=== PATIENT | female | born 1960 | race Caucasian/White ===

== ENCOUNTER 2023-08-29 07:07 | Outpatient (RCR) | payer OTHER, SELFPAY | END 2023-08-31 23:59 | disposition home or self-care (01) | LOC: RPT 07:07 | PROVIDERS: ATTENDING PHYSICIAN Physical Medicine & Rehabilitation | DX: Z47.81 Encounter for orthopedic aftercare following surgical amputation (principal); Z89.611 Acquired absence of right leg above knee; G62.9 Polyneuropathy, unspecified; R26.2 Difficulty in walking, not elsewhere classified; M25.522 Pain in left elbow; M62.81 Muscle weakness (generalized); Z74.09 Other reduced mobility | CPT/HCPCS: 97112; 97116; 97140; 97763 ==

== ENCOUNTER 2023-09-28 06:55 | Outpatient (RCR) | payer OTHER, SELFPAY | END 2023-09-28 23:59 | disposition home or self-care (01) | LOC: RPT 06:55 | PROVIDERS: ATTENDING PHYSICIAN Physical Medicine & Rehabilitation | DX: Z47.81 Encounter for orthopedic aftercare following surgical amputation (principal); Z89.611 Acquired absence of right leg above knee; M25.522 Pain in left elbow; G62.9 Polyneuropathy, unspecified; R26.2 Difficulty in walking, not elsewhere classified; Z74.09 Other reduced mobility; M62.81 Muscle weakness (generalized); Z73.6 Limitation of activities due to disability | CPT/HCPCS: 97116; 97140; 97763 ==

== ENCOUNTER → 2023-10-17 09:18 | Outpatient (REF) | payer OTHER, SELFPAY | LOC: RAD 09:18 | PROVIDERS: ATTENDING PHYSICIAN Surgery Vascular Surgery | DX: I73.9 Peripheral vascular disease, unspecified (principal) | CPT/HCPCS: 93922; 93925 ==

== ENCOUNTER 2023-10-19 06:15 | Outpatient (RCR) | payer OTHER, SELFPAY | END 2023-10-19 23:59 | disposition home or self-care (01) | LOC: RPT 06:15 | PROVIDERS: ATTENDING PHYSICIAN Physical Medicine & Rehabilitation | DX: Z47.81 Encounter for orthopedic aftercare following surgical amputation (principal); M25.522 Pain in left elbow; G62.9 Polyneuropathy, unspecified; R26.2 Difficulty in walking, not elsewhere classified; Z74.09 Other reduced mobility; M62.81 Muscle weakness (generalized); Z89.611 Acquired absence of right leg above knee | CPT/HCPCS: 97140; 97763 ==

== ENCOUNTER 2023-10-24 09:23 | Inpatient (IN) | payer OTHER, SELFPAY ==
[2023-10-12 10:25] VITALS: BMI 25.9
[2023-10-12 11:04] LABS: % Basophils 0.3 % (0-2); % Eosinophils 1.5 % (0-6); % Immature Granulocytes 0.7 % (0-0.5); % Lymphocytes 24.4 % (20.5-51.1); % Monocytes 7.9 % (1.7-9.3); % Neutrophils 65.2 % (42.2-75.2); Absolute Eosinophils 0.1 10^3/uL (0-0.7); Absolute Immature Granulocytes 0.1 10^3/uL (0-0.05); Absolute Lymphocytes 1.8 10^3/uL (1.2-3.4); Absolute Monocytes 0.6 10^3/uL (0.1-0.6); Absolute Neutrophils 4.7 10^3/uL (1.4-6.5); Hematocrit 42.9 % (37.0-47.0); Hemoglobin 14.7 g/dL (12.0-16.0); Mean Corp Hgb Conc. 34.3 g/dL (33.0-37.0); Mean Corpuscular Hgb 30.7 pg (27.0-31.0); Mean Corpuscular Volume 89.6 fL (81.0-99.0); Mean Platelet Volume 9.5 fL (7.4-10.4); Nucleated Red Blood Cells % 0 %; Platelet Count 143 10^3/uL (130-400); Red Blood Cell Count 4.79 10^6/uL (4.20-5.40); Red Cell Dist. Width 12.7 % (11.5-14.5); White Blood Cell Count 7.3 10^3/uL (4.8-10.8)
[2023-10-12 11:13] LABS: INR 1.06; PT 13.8 Sec (11.4-14.6)
[2023-10-12 11:51] LABS: ALT (SGPT) 35 U/L (0-35); AST (SGOT) 45 U/L (14-36); Albumin 3.9 g/dl (3.5-5.0); Alkaline Phosphatase 136 U/L (38-126); Blood Urea Nitrogen 25 mg/dl (7-17); Calcium 8.7 mg/dl (8.4-10.2); Carbon Dioxide 29 mmol/L (22-30); Chloride 97 mmol/L (98-107); Estimated Creatinine Clearance 71 ml/min; Glucose 463 mg/dl (70-99); Magnesium 2.2 mg/dl (1.6-2.3); Potassium 4.5 mmol/L (3.5-5.1); Sodium 132 mmol/L (135-145); Total Bilirubin 1.1 mg/dl (0.2-1.3); Total Protein 6.6 g/dl (6.3-8.2); eGFR > 60.00
[2023-10-24] VITALS (8 sets, daily range): BP systolic 116–133; BP diastolic 61–76; BMI 25.9
[2023-10-24 07:07] LABS: Glucose - Point of Care 209 mg/dl (70-99)
[2023-10-24] MEDS: NOVOLOG vial 2 UNITS SC (07:24)
--- NOTE | 2023-10-24 08:42 | W.ICD.CONTRA ---
Post ICD/FINISH CARPENTER-D
-
History of LA?: No
LV Function
Left ventricular function study result?: Ejection Fraction </= 35%
ACEI/ARB/ARNI
Patient already on ACEI/ARB/ARNI: Yes
Beta-José Antonio
Patient already on Beta José Antonio: Yes
--- NOTE | 2023-10-24 12:02 | PTCARENOTE ---
Received the patient from the track repair laborer in her bed. The patient is aaox3, vss, 96% on RA. 100% A-V paced on the monitor. Her left chest wall Aquacel dressing is c/d/i with a pressure dressing overtop. Her left arm immobilizer is in place. Her only
complaint is mild back pain. I oriented her to her room. Her call rod is within reach.
--- NOTE | 2023-10-24 12:16 | ITS.CL.ICD ---
Cane Feeder - ICD
Implantable Cardioverter Defibrillator
Procedure Report:
Primary Physician: Solange Tong MD
Primary Hospital Orderly: Reese Deng MD
Procedure Date: 10/24/2023
Procedure:
1: Implantation of GARNISHMENT SPECIALIST-D utilizing LBBAP pacing lead for conduction system pacing
2: Subclavian venography
Indication/Diagnosis:
1. LBBB with baseline QRS > 120 msec
2. CHF - NYHA class 3
3. LVEF < 35%
HISTORY: Please see office H&P.
Patient is a 63-year-old female with a past medical history of mixed cardiomyopathy LVEF less than 35% despite goal-directed medical therapy, CAD, PAD status post right AKA, diabetes mellitus type 2, hypertension, dyslipidemia.
After informed consent was obtained, the patient was brought to the EP laboratory in a postabsorptive, nonsedated state. Peripheral IV access was established. Prophylactic antibiotics were administered prior to incision. Continuous ECG, blood
pressure, and pulse oximetry were initiated. Cardioversion patch electrodes were placed on the patient's chest and back. A grounding patch was applied to the skin. Sedation was administered by anesthesia.
In order to define the extrathoracic portion of the subclavian vein and exclude significant venous obstruction or anomalous anatomy, subclavian venography was performed prior to the procedure. Using the patient's left peripheral IV, contrast was
injected and images were recorded. The left subclavian vein and SVC were found to be widely patent.
The left chest was prepared and draped in a sterile fashion. A 'time out' was called and confirmed. Local anesthesia was injected in the subcutaneous tissue in the infraclavicular area. An incision was made medial to the deltopectoral groove and
parallel to the clavicle. The subcutaneous tissue was dissected the level of the prepectoral fascia. A subcutaneous pocket was created. Under fluoroscopic guidance and with the assistance of the images from the venogram, three separate
venipunctures were made using micropuncture and modified Seldinger technique. These was performed in the extrathoracic portion of the subclavian vein. Guidewires were passed. Peel-away sheaths were placed, and were used to advance the leads into
the circulation.
Using fluoroscopic guidance, the leads were positioned. The RV lead was advanced to the RV outflow tract. Ventricular ectopy was recorded. Images were taken in VICENTE and LITHUANIAN views to ensure appropriate lead placement. The lead tip was subsequently
positioned in the RV apex. Adequate sensing and pacing parameters were found, and no diaphragmatic stimulation was seen with high-output pacing.
Fluoroscopy was used to determine likely anatomic site for left bundle branch pacing. The FABPulous C315 sheath was used to deliver the Medtronic 3830 Selectsecure pacing lead with the helix exposed just exposed from the sheath tip during continuous
monitoring when pacemapping the septum during gentle clockwise rotation to obtain a paced QRS morphology of a W pattern in lead V1. Once the suspected optimal site was identified, lead deployment was performed with several rapid rotations as paced
QRS morphology was intermittently monitored until a paced QRS complex in lead V1 demonstrated development of an R wave (qR or rSR). Unipolar pacing impedance dropped by approximately 100-200 ohms suggesting it had reached the left ventricular
subendocardial. Stable VEgm injury current is present throughout lead position and at end of case. Final unipolar pacing impedance is 880 Ohms Unipolar pacing threshold is stable at 1 V @ 0.4 ms. The patient had pre-existing left bundle branch block
at baseline (150 ms). Final conduction system paced QRS complex duration is 113 ms. LVAT is 70 ms and peak V5 -> peak V1 timing is 67 ms.
Next, the right atrial lead was positioned in the right atrial appendage. Adequate sensing and pacing parameters were found, and no diaphragmatic stimulation was seen with high-output pacing. All sheaths were split, and the leads were secured to
the fascia with Ethibond ties.
The pocket was flushed with antibiotic solution and hemostasis was assured. The generator was connected to the leads and placed inside the pocket. Antibiotic envelope was used. SurgiFlo was used in the pocket. The wound was closed with 3 running
layers of absorbable suture, and steri-strips were applied. Defibrillator function testing was deferred.
Fluoroscopy was used to guide lead placement. Fluoroscopic exposure 28.1 min and 84.17 mGy and DAP 8.56. Contrast used 30 cc.
Following the procedure, the patient was taken to the recovery area in stable condition. A chest x-ray to be obtained in holding/patient room.
IMPLANTS:
Device: Medtronic Model QRTQ9X0, SN: [id number]
RA: Medtronic, Model 5076, SN: [id number]
RV ICD: Medtronic, Model 6935, SN: [id number]
RV LBBAP: Medtronic 3830, SN:[id number], Interventricular septum at LBB
DEVICE TESTING:
RA: Sensing 2.2 mV, Capture 0.875 V @0.4 msec, Impedance 780 ohms
RV (ICD lead): Sensing 20 mV, Capture 0.75 V @0.4 msec, Impedance 570 ohms
RV (LBBAP lead): Sensing 12 mV, Capture 1.0 V @0.4 msec, Impedance 580 ohms (bipolar)
FINAL PROGRAMMING
Jimmy Parameters: DDD, mode switch on, lower rate 50, upper tracking rate 130 bpm; LV pacing only
Tachy Parameters: Monitor zone: 150 bpm to 188 bpm; VF zone >188 bpm; with ATP and shocks
COMPLICATIONS:
There were no complications.
CONCLUSIONS:
1: Successful implantation of GARNISHMENT SPECIALIST-D utilizing LBBAP pacing lead for conduction system pacing
RECOMMENDATIONS:
1. Post-op care (tele, CXR, IV abx)
2. In-Office wound check in 5-7 days
3. Recommend reduction in output to improve QRS morphology at next office visit
Copy to: Solange Tong MD; Reese Deng MD
[2023-10-24] MEDS: TYLENOL 650 MG PO ×2 (12:22→19:22)
[2023-10-24 12:29] LABS: Glucose - Point of Care 143 mg/dl (70-99)
[2023-10-24] MEDS: NOVOLOG FLEXPEN 30 UNITS SC ×2 (12:32→17:35)
[2023-10-24] MEDS: NOVOLOG FLEXPEN-HIGH RESISTANCE 1 UNITS SC ×2 (12:33→17:36)
[2023-10-24] MEDS: ULTRAM 50 MG PO (13:40)
[2023-10-24] MEDS: ANCEF 5 IV ×2 (13:53→21:27)
[2023-10-24] MEDS: FLUSH (NSS) 2 FLUSH IV (13:54)
--- NOTE | 2023-10-24 15:10 | CM ---
Chart reviewed. Patient is independent of ADLS, lives with her in a 2 STH, 0 ABIMBOLA, patient has a RLE prothesis and ambulates with a rolling walker and a wheelchair. Patient uses outpatient PT. Patient is not current with VN and is not
interested. Plan is for the patient to return home with no needs. CM to follow
[2023-10-24 17:32] LABS: Glucose - Point of Care 138 mg/dl (70-99)
--- NOTE | 2023-10-24 19:12 | PTCARENOTE ---
100% AV paced. VSS. Pain medication to be administered PRN and scheduled. Spouse at bedside. Questions answered. LUE remains in immobilizer, pressure dressing intact to LCW. Assessment per nursing flowsheet.
[2023-10-24] MEDS: NEURONTIN 900 MG PO (19:21)
[2023-10-24] MEDS: ENTRESTO 24 MG/26 MG 1 TAB PO (19:21)
[2023-10-24] MEDS: COREG 3.125 MG PO (19:22)
[2023-10-24] MEDS: ULTRAM 100 MG PO (21:27)
[2023-10-24] MEDS: LIPITOR 40 MG PO (21:27)
[2023-10-24] MEDS: ATIVAN 0.5 MG PO (21:27)
[2023-10-24] MEDS: ZETIA 10 MG PO (21:27)
[2023-10-24] MEDS: ZOLOFT 100 MG PO (21:27)
[2023-10-24] MEDS: LANTUS 0.800000000000000044 UNITS SC (21:29)
[2023-10-24 21:31] LABS: Glucose - Point of Care 165 mg/dl (70-99)
[2023-10-25 02:33] VITALS: BP 117/68
[2023-10-25] MEDS: TYLENOL 650 MG PO (02:33)
[2023-10-25 04:47] VITALS: BMI 26.6
[2023-10-25 05:20] LABS: Hematocrit 47.7 % (37.0-47.0); Mean Corp Hgb Conc. 33.5 g/dL (33.0-37.0); Mean Corpuscular Hgb 30.7 pg (27.0-31.0); Mean Corpuscular Volume 91.6 fL (81.0-99.0); Mean Platelet Volume 9.4 fL (7.4-10.4); Platelet Count 148 10^3/uL (130-400); Red Blood Cell Count 5.21 10^6/uL (4.20-5.40); Red Cell Dist. Width 12.9 % (11.5-14.5); White Blood Cell Count 9.3 10^3/uL (4.8-10.8)
[2023-10-25 05:51] LABS: Blood Urea Nitrogen 21 mg/dl (7-17); Calcium 8.9 mg/dl (8.4-10.2); Carbon Dioxide 25 mmol/L (22-30); Chloride 105 mmol/L (98-107); Estimated Creatinine Clearance 94 ml/min; Glucose 135 mg/dl (70-99); Potassium 4.9 mmol/L (3.5-5.1); Sodium 135 mmol/L (135-145); eGFR > 60.00
[2023-10-25 06:51] VITALS: BP 120/64
[2023-10-25 06:55] LABS: Glucose - Point of Care 121 mg/dl (70-99)
[2023-10-25] MEDS: NOVOLOG FLEXPEN 30 UNITS SC (07:33)
[2023-10-25] MEDS: NOVOLOG FLEXPEN-HIGH RESISTANCE 1 UNITS SC (07:33)
[2023-10-25] MEDS: ULTRAM 50 MG PO (08:18)
[2023-10-25] MEDS: NEURONTIN 900 MG PO (08:18)
[2023-10-25] MEDS: LASIX 40 MG PO (08:18)
[2023-10-25] MEDS: FARXIGA 10 MG PO (08:18)
[2023-10-25] MEDS: ASPIR LOW (ENTERIC COATED) 81 MG PO (08:18)
[2023-10-25] MEDS: ENTRESTO 24 MG/26 MG 1 TAB PO (08:18)
[2023-10-25] MEDS: PLAVIX 75 MG PO (08:18)
[2023-10-25] MEDS: COREG 3.125 MG PO (08:18)
[2023-10-25] MEDS: FLUSH (NSS) 1 FLUSH IV (08:19)
--- NOTE | 2023-10-25 08:33 | W.PN.CARDCBS ---
Addendum entered and electronically signed by Yohannes Franz MD 10/25/23 11:08:
Patient seen, interviewed and examined by me.
Well-appearing, no acute distress
Dressing at left upper chest is clean and dry.
Regular rate and rhythm with normal S1 and S2, no S3 no S4. There is a grade 1/6 apical holosystolic murmur and no rubs. PMI is normally placed.
Lungs are clear to auscultation bilaterally without wheezes rales or rhonchi.
Abdomen soft nontender nondistended with normoactive bowel sounds
Extremities show trace pretibial edema bilaterally no clubbing or cyanosis.
Neurologic exam is grossly nonfocal.
Agree with advanced practice professionals assessment and plan as noted below.
Stable for discharge to home after cardiac resynchronization defibrillator implantation yesterday.
Continue medical therapy for heart failure with reduced ejection fraction.
All of patient's questions have been answered.
Total time, 35 minutes
Original Note:
Today's Communication / Plan
-
incision check next week
home today
Impression / Plan
-
PCP: Aida Tanner NP
CDY: Reese Murphy MD
63 y/o, presents with dilated NICM, chronic systolic HFrEF, LBBB, non obstructive CAD. S/P Bi-V ICD implant.
IMPRESSION:
Dilated NICM
Chronic systolic HFrEF, 25-30%
LBBB
Non obstructive CAD (from cath 04/2023)
s/p Bi-V ICD implant, 10/24/23
HTN
HLD
DM
Diabetic retinopathy
PAD w/RLE bypass x4, subsequent BKA and finally AKA (03/2023)
Left BrCa, s/p lumpectomy and XRT (2019)
Resolved left cephalic occlusive thrombus
PLAN:
Tele- FREIGHT SEPARATOR, no VT/arrhythmia
Post CXR w/stable lead position, no pneumothorax
device site tender, pain relieved with tylenol
activity limitations reviewed- currently PT on hold until cleared post device
continue current meds
incision check at [facility] next week
followup with Dr. Murphy thereafter
home today
Progress Note - Programmer Business
Subjective
Date of Service: October 25, 2023
device site tenderness/pain overnight, relieved with tylenol
oob using BSC
denies cp/palps/dyspnea
Objective
Labs:
10/25/23 05:02
10/25/23 05:01
Labs
Hgb 16.0 g/dL (12.0-16.0) 10/25/23 05:02
Hct 47.7 % (37.0-47.0) H 10/25/23 05:02
Plt Count 148 10^3/uL (130-400) 10/25/23 05:02
PT 13.8 Sec (11.4-14.6) 10/12/23 10:53
INR 1.06 10/12/23 10:53
Sodium 135 mmol/L (135-145) 10/25/23 05:01
Potassium 4.9 mmol/L (3.5-5.1) 10/25/23 05:01
BUN 21 mg/dl (7-17) H 10/25/23 05:01
Creatinine 0.5 mg/dL (0.6-1.0) L 10/25/23 05:01
Glucose 135 mg/dl (70-99) H 10/25/23 05:01
Vital Signs and I&O:
Vital Signs
Temp Pulse Resp BP Pulse Ox
97.8 F 88 16 120/64 95
10/25/23 06:52 10/25/23 07:00 10/25/23 06:52 10/25/23 06:51 10/25/23 06:52
Vital Signs
Temp Pulse Resp BP Pulse Ox
97.8 F 88 16 120/64 95
10/25/23 06:52 10/25/23 07:00 10/25/23 06:52 10/25/23 06:51 10/25/23 06:52
Intake & Output
10/23/23 10/24/23 10/25/23 10/26/23
06:59 06:59 06:59 06:59
Intake Total 240 / 240
Output Total 1500 / 1500
Balance -1260 / -1260
Physical Exam
Physical Exam
AAOx3, MAEE 5/5
RRR S1 S2 no murmurs
Left ACW w/aquacel dressing CDI, no ht/bleeding, mildly tender to palpation
CTA bilat, non labored
soft abd, + bs
extremities w/palpable distal pulses, no edema
--- NOTE | 2023-10-25 09:30 | W.HF.CON ---
Heart Failure
- LV Function
Left ventricular function study result: LV Ejection fraction </= 35% (ECHO 08/16/23)
Ejection Fraction Percentage: 33
- ARNI
Patient already on ARNI: Yes
- ACEI/ARB
Patient already on ACEI/ARB: No
Heart Failure ACEI/ARB Not Indicated: Patient ordered/on ARNI
- Beta José Antonio
Patient already on Evidence Based Beta José Antonio: Yes
- Mineralocorticord Receptor Antagonist
Patient already on MRA: No
Heart Failure MRA Contraindication: Hypotension
- SGLT-2 Inhibitor
Patient already on SGLT-2 Inhibitor: Yes
- NYHA CHF Classification
NYHA CHF Classification Level: Class III - Symptoms w/ min exertion, interferes w/ nml daily activity
- ACC/AHA Stage
ACC/AHA Stage: Stage C: Symptomatic Heart Failure
[2023-10-25 11:09] VITALS: BP 116/77
--- NOTE | 2023-10-25 12:36 | W.DS.TRANS ---
DC Summary - Meter Calibrator
-
Discharge Instructions:
Sleep Apnea Risk Intermediate
Discharge Diagnosis/Procedures Bi-V ICD implant
Diet Diabetic, Carb Controlled,Low Sodium,Restrict
fluids to 48 oz
Driving Restrictions No driving for 1 week
Bathing Restrictions OK to Shower
Specialty Instructions Weigh Daily
Instructions: *[facility] Heart Failure Instructions
Stand-Alone Forms: DC Inst - Implanted Device
Changes to Home Medications: No
Discharge Medications:
DC Medications w/original date entered in [employer]
ezetimibe 10 mg tablet (Zetia) 10 mg PO HS High cholesterol #30 tabs 04/21/22
sertraline 100 mg tablet 100 mg PO HS Depression #30 tabs 04/21/22
lorazepam 0.5 mg tablet 0.5 mg PO HSPRN PRN Anxiety 09/06/22
tramadol 50 mg tablet 50 mg PO DAILY Pain 09/06/22
gabapentin 300 mg capsule 300 mg PO BID Neurological Condition 04/24/23
tramadol 50 mg tablet 100 mg PO HS Pain 04/24/23
dapagliflozin propanediol 10 mg tablet (Farxiga) 10 mg PO DAILY Heart Failure #30 tabs 04/28/23
furosemide 40 mg tablet (Lasix) 40 mg PO DAILY Heart Failure #30 tabs 04/28/23
sacubitril 24 mg-valsartan 26 mg tablet (Entresto) 1 tab PO BID Heart Failure #60 tabs 04/28/23
atorvastatin 40 mg tablet 40 mg PO HS High cholesterol #30 tabs 04/29/23
clopidogrel 75 mg tablet 75 mg PO DAILY Blood clot prevention/tx #30 tabs 04/29/23
carvedilol 3.125 mg tablet 3.125 mg PO BID Heart Failure 10/07/23
docusate sodium 100 mg capsule (Colace) 100 mg PO HSPRN PRN Constipation 10/07/23
insulin glargine U-300 conc 300 unit/mL (1.5 mL) subcutaneous pen (Toujeo SoloStar U-300 Insulin) 100 unit SC HS Diabetes 10/07/23
acetaminophen 325 mg tablet 650 mg PO Q6HPRN PRN mild pain 10/24/23
aspirin 81 mg tablet,delayed release 81 mg PO DAILY Blood Clot Prevention/Tx 10/24/23
gabapentin 600 mg tablet 600 mg PO BID Neurological Condition 10/24/23
insulin aspart U-100 100 unit/mL (3 mL) subcutaneous pen (Novolog FlexPen U-100 Insulin aspart) 1 sliding scale dose SC DIRECTED Diabetes 10/24/23
insulin aspart U-100 100 unit/mL (3 mL) subcutaneous pen (Novolog FlexPen U-100 Insulin aspart) 30 unit SC MEALS Diabetes 10/24/23
Home Medication Changes
Pending Results: No
== END 2023-10-25 11:57 | disposition home or self-care (01) | DRG 277 ==
LOC: IVU 09:23
PROVIDERS: Internal Medicine; Nurse Practitioner; ADMITTING PHYSICIAN Internal Medicine Cardiovascular Disease; FAMILY PHYSICIAN Nurse Practitioner
PROC: 02HK3KZ Insertion of Defibrillator Lead into Right Ventricle, Percutaneous Approach (ICD-10-PCS; 2023-10-24)
PROC: 02H63KZ Insertion of Defibrillator Lead into Right Atrium, Percutaneous Approach (ICD-10-PCS; 2023-10-24)
PROC: 02H43KZ Insertion of Defibrillator Lead into Coronary Vein, Percutaneous Approach (ICD-10-PCS; 2023-10-24)
PROC: 0JH609Z Insertion of Cardiac Resynchronization Defibrillator Pulse Generator into Chest Subcutaneous Tissue and Fascia, Open Approach (ICD-10-PCS; 2023-10-24)
DX: I11.0 Hypertensive heart disease with heart failure (principal); I50.22 Chronic systolic (congestive) heart failure; I44.7 Left bundle-branch block, unspecified; I42.0 Dilated cardiomyopathy; I25.10 Atherosclerotic heart disease of native coronary artery without angina pectoris; E78.5 Hyperlipidemia, unspecified; E11.51 Type 2 diabetes mellitus with diabetic peripheral angiopathy without gangrene; E11.319 Type 2 diabetes mellitus with unspecified diabetic retinopathy without macular edema; K76.0 Fatty (change of) liver, not elsewhere classified; M19.90 Unspecified osteoarthritis, unspecified site; Z85.3 Personal history of malignant neoplasm of breast; Z79.02 Long term (current) use of antithrombotics/antiplatelets; Z79.4 Long term (current) use of insulin; Z79.82 Long term (current) use of aspirin; Z79.899 Other long term (current) drug therapy; Z87.891 Personal history of nicotine dependence; Z89.611 Acquired absence of right leg above knee
CPT/HCPCS: 33249; 36415; 71045; 80048; 80053; 82962; 83036; 83735; 85025; 85027; 85610; 93005; C1769; C1777; C1882; C1887; C1892; C1898; Q9967

== ENCOUNTER → 2023-11-16 14:14 | Outpatient (REF) | payer OTHER, SELFPAY | LOC: RAD 14:14 | PROVIDERS: ATTENDING PHYSICIAN Nurse Practitioner | DX: I73.9 Peripheral vascular disease, unspecified (principal); E11.621 Type 2 diabetes mellitus with foot ulcer; I82.602 Acute embolism and thrombosis of unspecified veins of left upper extremity | CPT/HCPCS: 93971 ==

== ENCOUNTER 2023-11-28 07:47 | Outpatient (RCR) | payer OTHER, SELFPAY | END 2023-11-28 23:59 | disposition home or self-care (01) | LOC: RPT 07:47 | PROVIDERS: ATTENDING PHYSICIAN Physical Medicine & Rehabilitation | DX: Z47.81 Encounter for orthopedic aftercare following surgical amputation (principal); Z89.611 Acquired absence of right leg above knee; G62.9 Polyneuropathy, unspecified; M25.522 Pain in left elbow; R26.2 Difficulty in walking, not elsewhere classified; Z74.09 Other reduced mobility; M62.81 Muscle weakness (generalized); Z73.6 Limitation of activities due to disability | CPT/HCPCS: 97116; 97763 ==

== ENCOUNTER → 2023-12-08 14:05 | Outpatient (REF) | payer OTHER, SELFPAY | LOC: RAD 14:05 | PROVIDERS: ATTENDING PHYSICIAN Nurse Practitioner | DX: M79.642 Pain in left hand (principal) | CPT/HCPCS: 73130 ==

== ENCOUNTER → 2023-12-15 06:58 | Outpatient (REF) | payer OTHER, SELFPAY | LOC: WDC 06:58 | PROVIDERS: ATTENDING PHYSICIAN Nurse Practitioner | DX: Z12.31 Encounter for screening mammogram for malignant neoplasm of breast (principal) | CPT/HCPCS: 77063; 77067 ==

== ENCOUNTER → 2023-12-19 11:42 | Outpatient (REF) | payer OTHER, SELFPAY | LOC: RAD 11:42 | PROVIDERS: ATTENDING PHYSICIAN Physician Assistant; FAMILY PHYSICIAN Internal Medicine | DX: I87.1 Compression of vein (principal) | CPT/HCPCS: 73206; Q9967 ==

== ENCOUNTER → 2023-12-21 09:21 | Outpatient (REF) | payer OTHER, SELFPAY | LOC: RAD 09:21 | PROVIDERS: ATTENDING PHYSICIAN Physician Assistant; FAMILY PHYSICIAN Nurse Practitioner | DX: I87.1 Compression of vein (principal) | CPT/HCPCS: 73206; Q9967 ==

== ENCOUNTER 2023-12-28 06:36 | Outpatient (RCR) | payer OTHER, SELFPAY | END 2023-12-28 23:59 | disposition home or self-care (01) | LOC: RPT 06:36 | PROVIDERS: ATTENDING PHYSICIAN Physical Medicine & Rehabilitation | DX: Z47.81 Encounter for orthopedic aftercare following surgical amputation (principal); Z89.611 Acquired absence of right leg above knee; G62.9 Polyneuropathy, unspecified; R26.2 Difficulty in walking, not elsewhere classified; Z74.09 Other reduced mobility; M62.81 Muscle weakness (generalized) | CPT/HCPCS: 97112; 97116; 97763 ==

== ENCOUNTER 2024-01-25 06:53 | Outpatient (RCR) | payer OTHER, SELFPAY | END 2024-01-25 23:59 | disposition home or self-care (01) | LOC: RPT 06:53 | PROVIDERS: ATTENDING PHYSICIAN Physical Medicine & Rehabilitation | DX: Z47.81 Encounter for orthopedic aftercare following surgical amputation (principal); Z89.611 Acquired absence of right leg above knee; G62.9 Polyneuropathy, unspecified; M25.522 Pain in left elbow; R26.2 Difficulty in walking, not elsewhere classified; Z74.09 Other reduced mobility; M62.81 Muscle weakness (generalized); Z91.81 History of falling | CPT/HCPCS: 97112; 97116; 97763 ==

== ENCOUNTER 2024-02-29 08:03 | Outpatient (RCR) | payer OTHER, SELFPAY | END 2024-02-29 23:59 | disposition home or self-care (01) | LOC: RPT 08:03 | PROVIDERS: ATTENDING PHYSICIAN Physical Medicine & Rehabilitation | DX: Z47.81 Encounter for orthopedic aftercare following surgical amputation (principal); Z89.611 Acquired absence of right leg above knee; G62.9 Polyneuropathy, unspecified; R26.2 Difficulty in walking, not elsewhere classified; Z74.09 Other reduced mobility; M25.522 Pain in left elbow | CPT/HCPCS: 97112; 97763 ==

== ENCOUNTER 2024-03-28 06:46 | Outpatient (RCR) | payer OTHER, SELFPAY | END 2024-03-28 23:59 | disposition home or self-care (01) | LOC: RPT 06:46 | PROVIDERS: ATTENDING PHYSICIAN Physical Medicine & Rehabilitation | DX: Z47.81 Encounter for orthopedic aftercare following surgical amputation (principal); Z89.611 Acquired absence of right leg above knee; G62.9 Polyneuropathy, unspecified; R26.2 Difficulty in walking, not elsewhere classified; M25.522 Pain in left elbow; M62.81 Muscle weakness (generalized); Z74.09 Other reduced mobility | CPT/HCPCS: 97112; 97116; 97530; 97763 ==

== ENCOUNTER 2024-04-30 06:52 | Outpatient (RCR) | payer OTHER, SELFPAY | END 2024-04-30 23:59 | disposition home or self-care (01) | LOC: RPT 06:52 | PROVIDERS: ATTENDING PHYSICIAN Physical Medicine & Rehabilitation | DX: Z47.81 Encounter for orthopedic aftercare following surgical amputation (principal); Z89.611 Acquired absence of right leg above knee; G62.9 Polyneuropathy, unspecified; R26.2 Difficulty in walking, not elsewhere classified; Z74.09 Other reduced mobility; M62.81 Muscle weakness (generalized) | CPT/HCPCS: 97112; 97116; 97530; 97763 ==

== ENCOUNTER → 2024-05-10 07:53 | Outpatient (REF) | payer OTHER, SELFPAY | LOC: DHVS 07:53 | PROVIDERS: ATTENDING PHYSICIAN Surgery Vascular Surgery; FAMILY PHYSICIAN Nurse Practitioner | DX: I73.9 Peripheral vascular disease, unspecified (principal); S78.111A Complete traumatic amputation at level between right hip and knee, initial encounter | CPT/HCPCS: 93922; 93925 ==

== ENCOUNTER 2024-05-30 06:31 | Outpatient (RCR) | payer OTHER, SELFPAY | END 2024-05-30 23:59 | disposition home or self-care (01) | LOC: RPT 06:31 | PROVIDERS: ATTENDING PHYSICIAN Physical Medicine & Rehabilitation | DX: Z47.81 Encounter for orthopedic aftercare following surgical amputation (principal); M25.522 Pain in left elbow; Z89.611 Acquired absence of right leg above knee; G62.9 Polyneuropathy, unspecified; Z74.09 Other reduced mobility; R26.2 Difficulty in walking, not elsewhere classified; M62.81 Muscle weakness (generalized) | CPT/HCPCS: 97112; 97116; 97763 ==

== ENCOUNTER → 2024-06-14 07:53 | Outpatient (REF) | payer OTHER, SELFPAY | LOC: EMG 07:53 | PROVIDERS: ATTENDING PHYSICIAN Nurse Practitioner | DX: E55.9 Vitamin D deficiency, unspecified (principal) | CPT/HCPCS: 95886; 95911 ==

== ENCOUNTER 2024-06-27 07:54 | Outpatient (RCR) | payer OTHER, SELFPAY | END 2024-06-27 23:59 | disposition home or self-care (01) | LOC: RPT 07:54 | PROVIDERS: ATTENDING PHYSICIAN Physical Medicine & Rehabilitation | DX: Z47.81 Encounter for orthopedic aftercare following surgical amputation (principal); Z47.89 Encounter for other orthopedic aftercare (principal); G62.9 Polyneuropathy, unspecified; M25.522 Pain in left elbow; R26.2 Difficulty in walking, not elsewhere classified; Z74.09 Other reduced mobility; M62.81 Muscle weakness (generalized); G54.6 Phantom limb syndrome with pain; Z89.611 Acquired absence of right leg above knee | CPT/HCPCS: 97116; 97763 ==

== ENCOUNTER 2024-07-30 06:56 | Outpatient (RCR) | payer OTHER, SELFPAY | END 2024-07-30 23:59 | disposition home or self-care (01) | LOC: RPT 06:56 | PROVIDERS: ATTENDING PHYSICIAN Physical Medicine & Rehabilitation | DX: Z47.81 Encounter for orthopedic aftercare following surgical amputation (principal); G62.9 Polyneuropathy, unspecified; M25.522 Pain in left elbow; R26.2 Difficulty in walking, not elsewhere classified; Z74.09 Other reduced mobility; G54.6 Phantom limb syndrome with pain; Z89.611 Acquired absence of right leg above knee; Z47.89 Encounter for other orthopedic aftercare; M62.81 Muscle weakness (generalized) | CPT/HCPCS: 97112; 97116; 97763 ==

== ENCOUNTER → 2024-08-14 08:49 | Outpatient (REF) | payer OTHER, SELFPAY | LOC: RCS 08:49 | PROVIDERS: ATTENDING PHYSICIAN Internal Medicine Cardiovascular Disease; FAMILY PHYSICIAN Internal Medicine | DX: I50.20 Unspecified systolic (congestive) heart failure (principal) | CPT/HCPCS: 93306 ==

== ENCOUNTER 2024-08-29 06:35 | Outpatient (RCR) | payer OTHER, SELFPAY | END 2024-08-29 23:59 | disposition home or self-care (01) | LOC: RPT 06:35 | PROVIDERS: ATTENDING PHYSICIAN Physical Medicine & Rehabilitation | DX: Z47.81 Encounter for orthopedic aftercare following surgical amputation (principal); G62.9 Polyneuropathy, unspecified; M25.522 Pain in left elbow; R26.2 Difficulty in walking, not elsewhere classified; Z74.09 Other reduced mobility; Z73.6 Limitation of activities due to disability; G54.6 Phantom limb syndrome with pain; M62.81 Muscle weakness (generalized); Z89.611 Acquired absence of right leg above knee; Z47.89 Encounter for other orthopedic aftercare | CPT/HCPCS: 97112; 97116; 97763 ==

== ENCOUNTER 2024-09-24 06:44 | Outpatient (RCR) | payer OTHER, SELFPAY | END 2024-09-24 23:59 | disposition home or self-care (01) | LOC: RPT 06:44 | PROVIDERS: ATTENDING PHYSICIAN Physical Medicine & Rehabilitation | DX: Z47.81 Encounter for orthopedic aftercare following surgical amputation (principal); G62.9 Polyneuropathy, unspecified; R26.2 Difficulty in walking, not elsewhere classified; M25.522 Pain in left elbow; Z74.09 Other reduced mobility; Z73.6 Limitation of activities due to disability; Z89.611 Acquired absence of right leg above knee; G54.6 Phantom limb syndrome with pain; M62.81 Muscle weakness (generalized); Z47.89 Encounter for other orthopedic aftercare | CPT/HCPCS: 97110; 97116; 97763 ==

== ENCOUNTER → 2024-10-19 07:52 | Outpatient (REF) | payer OTHER, SELFPAY | LOC: HWRAD 07:52 | PROVIDERS: ATTENDING PHYSICIAN Nurse Practitioner Family; FAMILY PHYSICIAN Nurse Practitioner; REFERRING PHYSICIAN Internal Medicine Hematology & Oncology | DX: D05.12 Intraductal carcinoma in situ of left breast (principal) | CPT/HCPCS: 77080 ==

== ENCOUNTER 2024-10-29 06:18 | Outpatient (RCR) | payer OTHER, SELFPAY | END 2024-10-29 23:59 | disposition home or self-care (01) | LOC: RPT 06:18 | PROVIDERS: ATTENDING PHYSICIAN Physical Medicine & Rehabilitation | DX: Z47.81 Encounter for orthopedic aftercare following surgical amputation (principal); G62.9 Polyneuropathy, unspecified; M25.522 Pain in left elbow; R26.2 Difficulty in walking, not elsewhere classified; Z89.611 Acquired absence of right leg above knee; Z73.6 Limitation of activities due to disability; G54.6 Phantom limb syndrome with pain; M62.81 Muscle weakness (generalized); Z74.09 Other reduced mobility; Z47.89 Encounter for other orthopedic aftercare | CPT/HCPCS: 97110; 97116; 97763 ==

== ENCOUNTER 2024-11-21 06:41 | Outpatient (RCR) | payer OTHER, SELFPAY | END 2024-11-28 23:59 | disposition home or self-care (01) | LOC: RPT 06:41 | PROVIDERS: ATTENDING PHYSICIAN Physical Medicine & Rehabilitation | DX: Z47.81 Encounter for orthopedic aftercare following surgical amputation (principal); Z89.611 Acquired absence of right leg above knee; M25.522 Pain in left elbow; G62.9 Polyneuropathy, unspecified; R26.2 Difficulty in walking, not elsewhere classified; Z73.6 Limitation of activities due to disability; G54.6 Phantom limb syndrome with pain; M62.81 Muscle weakness (generalized); Z47.89 Encounter for other orthopedic aftercare; Z74.09 Other reduced mobility | CPT/HCPCS: 97116; 97763 ==

== ENCOUNTER → 2024-11-27 07:53 | Outpatient (REF) | payer OTHER, SELFPAY | LOC: RAD 07:53 | PROVIDERS: ATTENDING PHYSICIAN Registered Nurse; FAMILY PHYSICIAN Nurse Practitioner; REFERRING PHYSICIAN Internal Medicine Cardiovascular Disease | DX: I73.9 Peripheral vascular disease, unspecified (principal) | CPT/HCPCS: 93922; 93925 ==

== ENCOUNTER → 2024-12-18 07:04 | Outpatient (REF) | payer OTHER, SELFPAY | LOC: WDC 07:04 | PROVIDERS: ATTENDING PHYSICIAN Nurse Practitioner | DX: Z12.31 Encounter for screening mammogram for malignant neoplasm of breast (principal) | CPT/HCPCS: 77063; 77067 ==

== ENCOUNTER 2024-12-26 06:53 | Outpatient (RCR) | payer OTHER, SELFPAY | END 2024-12-26 23:59 | disposition home or self-care (01) | LOC: RPT 06:53 | PROVIDERS: ATTENDING PHYSICIAN Physical Medicine & Rehabilitation | DX: Z47.81 Encounter for orthopedic aftercare following surgical amputation (principal); M25.522 Pain in left elbow; G62.9 Polyneuropathy, unspecified; R26.2 Difficulty in walking, not elsewhere classified; Z73.6 Limitation of activities due to disability; G54.6 Phantom limb syndrome with pain; M62.81 Muscle weakness (generalized); Z74.09 Other reduced mobility; Z89.611 Acquired absence of right leg above knee; Z47.89 Encounter for other orthopedic aftercare | CPT/HCPCS: 97110; 97112; 97116; 97763 ==

== ENCOUNTER → 2025-01-01 09:58 | Outpatient (REF) | payer OTHER, SELFPAY | LOC: WDC 09:58 | PROVIDERS: ATTENDING PHYSICIAN Nurse Practitioner | DX: R92.8 Other abnormal and inconclusive findings on diagnostic imaging of breast (principal) | CPT/HCPCS: 76642 ==

== ENCOUNTER 2025-01-28 07:47 | Outpatient (RCR) | payer OTHER, SELFPAY | END 2025-01-28 23:59 | disposition home or self-care (01) | LOC: RPT 07:47 | PROVIDERS: ATTENDING PHYSICIAN Physical Medicine & Rehabilitation | DX: Z47.81 Encounter for orthopedic aftercare following surgical amputation (principal); M25.522 Pain in left elbow; G62.9 Polyneuropathy, unspecified; R26.2 Difficulty in walking, not elsewhere classified; G54.6 Phantom limb syndrome with pain; M62.81 Muscle weakness (generalized); Z74.09 Other reduced mobility; Z73.6 Limitation of activities due to disability; Z89.611 Acquired absence of right leg above knee; Z47.89 Encounter for other orthopedic aftercare | CPT/HCPCS: 97112; 97763 ==

== ENCOUNTER → 2025-02-07 12:00 | Outpatient (REF) | payer OTHER, SELFPAY | LOC: DHSLP 12:00 | PROVIDERS: ATTENDING PHYSICIAN Nurse Practitioner | DX: G47.33 Obstructive sleep apnea (adult) (pediatric) (principal); R09.02 Hypoxemia | CPT/HCPCS: 95800 ==

== ENCOUNTER 2025-02-25 07:19 | Outpatient (RCR) | payer OTHER, SELFPAY | END 2025-02-25 23:59 | disposition home or self-care (01) | LOC: RPT 07:19 | PROVIDERS: ATTENDING PHYSICIAN Physical Medicine & Rehabilitation | DX: Z47.81 Encounter for orthopedic aftercare following surgical amputation (principal); M25.522 Pain in left elbow; G62.9 Polyneuropathy, unspecified; R26.2 Difficulty in walking, not elsewhere classified; G54.6 Phantom limb syndrome with pain; M62.81 Muscle weakness (generalized); Z74.09 Other reduced mobility; Z73.6 Limitation of activities due to disability; Z89.611 Acquired absence of right leg above knee; Z47.89 Encounter for other orthopedic aftercare | CPT/HCPCS: 97010; 97112; 97116; 97530; 97763 ==

== ENCOUNTER → 2025-02-26 14:28 | Outpatient (REF) | payer OTHER, SELFPAY | LOC: RAD 14:28 | PROVIDERS: ATTENDING PHYSICIAN Nurse Practitioner | DX: Z01.818 Encounter for other preprocedural examination (principal); M25.572 Pain in left ankle and joints of left foot | CPT/HCPCS: 73610 ==

== ENCOUNTER → 2025-03-14 08:26 | Outpatient (REF) | payer OTHER, SELFPAY | LOC: RAD 08:26 | PROVIDERS: ATTENDING PHYSICIAN Student in an Organized Health Care Education/Training Program; FAMILY PHYSICIAN Nurse Practitioner | DX: I73.9 Peripheral vascular disease, unspecified (principal) | CPT/HCPCS: 93923; 93925 ==

== ENCOUNTER 2025-03-21 06:09 | Day surgery (SDC) | payer OTHER, SELFPAY ==
[2025-03-21] VITALS (17 sets, daily range): BP systolic 95–152; BP diastolic 58–84; BMI 24.9
[2025-03-21 06:57] LABS: Glucose - Point of Care 157 mg/dl (70-99)
[2025-03-21 06:58] LABS: Hematocrit 44.0 % (37.0-47.0); Hemoglobin 14.9 g/dL (12.0-16.0); Mean Corp Hgb Conc. 33.9 g/dL (33.0-37.0); Mean Corpuscular Volume 90.7 fL (81.0-99.0); Platelet Count 109 10^3/uL (130-400); Red Cell Dist. Width 12.4 % (11.5-14.5)
--- NOTE | 2025-03-21 07:07 | W.SUR.PREOP ---
Pre-Operative Surgical Note
-
I have examined this patient prior to the performance of the scheduled procedure.
The patient's condition is unchanged from the time of the current History and
Physical and the patient is able to undergo the scheduled procedure.
[2025-03-21 07:11] LABS: APTT 29.4 Sec (23.4-35.0); INR 1.08; PT 14.5 Sec (11.4-14.6)
[2025-03-21 07:19] LABS: Blood Urea Nitrogen 12 mg/dl (7-17); Calcium 9.3 mg/dl (8.4-10.2); Carbon Dioxide 27 mmol/L (22-30); Chloride 104 mmol/L (98-107); Estimated Creatinine Clearance 93 ml/min; Glucose 178 mg/dl (70-99); Potassium 4.0 mmol/L (3.5-5.1); Sodium 140 mmol/L (135-145); eGFR > 60.00
--- NOTE | 2025-03-21 08:26 | W.SUR.POST ---
Surgical Immediate Post Op
Note
Pre Op Diagnosis: Peripheral arterial disease, claudication
Post Op Diagnosis: Peripheral arterial disease, claudication
Procedure Performed: DCB to in-stent left SFA stenosis, left popliteal artery and stent to SFA in-stent stenosis
Primary Surgeon: Daniel Mims M.D.
Secondary Surgeons: N/A
Anesthesia: GETA
Estimated Blood Loss: 2 mL
Fluids: Anesthesia flowsheet
Drains/Shunts: N/A
Specimens/Cultures: N/A
Doppler/Duplex/Angio (Y/N): Y
Complications: None
Operative Findings: Palpable PT pulse following endovascular intervention
[2025-03-21 09:08] LABS: Glucose - Point of Care 156 mg/dl (70-99)
--- NOTE | 2025-03-21 09:10 | OR.RPT ---
Operative Report
Operative Report
PROCEDURE DATE: 03/21/2025
Preoperative diagnosis:
1. Severe peripheral arterial disease status post left lower extremity angioplasty/stenting.
2. Severe recurrent left lower extremity claudication, significant drop in ABIs. Concern for imminent stent failure.
3. History of right abjxe-ydk-[id number] amputation.
Postoperative diagnosis: Same
Procedure:
1. Duplex assisted cannulation of right common femoral artery.
2. Aortogram and pelvic angiogram.
3. Left lower extremity arteriogram with a third order vessel catheterization of left popliteal artery via right common femoral artery puncture.
4. Drug-coated balloon angioplasty of left SFA in-stent restenosis with 6 mm Bard Lutonix drug-coated balloon.
5. Drug-coated balloon angioplasty of left jwiig-uxu-nyng popliteal artery stenosis with 5 mm Bard Lutonix drug-coated balloon.
6. Placement of Cook Zilver PTX drug-eluting stent within distal SFA in-stent refractory restenosis.
7. Right femoral angiogram.
8. Supervision and interpretation.
Surgeon: Yefri
Sales Support Assistant: None
Complications: None
Anesthesia: General, LMA
Fluoroscopy:
9.2 min
7.7 mGy
21.10 gy.cm2
Indications for procedure:
Recurrent left in-stent restenosis suspected on noninvasive studies. Transition to monophasic waveforms and significant drop in ABIs. Symptoms of significant claudication now while she was doing physical therapy (history of right AKA). Concern
for failing stent. Risk/benefits/alternatives of angiography fully discussed. Patient understood all wish to proceed.
Description of procedure:
Patient was identified, brought to the operating room. Placed on the table in the supine position. After the adequate administration of anesthesia, the patient was prepped and draped in the standard surgical fashion. A standard preoperative
timeout was undertaken and everybody was in agreement with the plan.
The right common femoral artery was accessed with a micropuncture kit under direct duplex ultrasound guidance. I advanced a stiff Amplatz wire given the scarred groin, and then a 5 Angolan sheath was then advanced over a 0.035 inch wire, and a
spain's hook catheter was advanced into the abdominal aorta. Aortogram and pelvic angiogram was obtained. Findings as follows:
Infrarenal aorta: [Patent with no significant stenosis]
Right common iliac artery: [Patent with no significant stenosis]
Right external iliac artery:[Patent with no significant stenosis]
Left common iliac artery:[Patent with no significant stenosis]
Left external iliac artery:[Patent with no significant stenosis]
Using a floppy angled hydrophilic wire, the left common femoral artery was cannulated and the catheter was advanced. Left lower extremity arteriogram was obtained. Findings as follows:
Common femoral artery: Patent with no significant stenosis.
Profunda femoris artery: Patent with no significant stenosis.
Superficial femoral artery: Patent with diffuse luminal irregularities, but no significant stenosis in its proximal two thirds. The proximal portion of the distal SFA stent was patent. The mid section of the stent at the transition from SFA to
above-knee popliteal artery had severe in-stent restenosis.
Popliteal artery: Patent with stenosis extending from the distal SFA within the stent. More distally the stent was patent. Just beyond the stent there was an area in the above-knee popliteal artery with severe stenosis de simone.
Anterior tibial artery: Patent with no significant stenosis, but crossed the ankle to become the dorsalis pedis but did not really feel well beyond the midfoot.
Tibial peroneal trunk: Patent with no significant stenosis.
Peroneal artery: Patent with no significant stenosis, but relatively diminutive sized vessel throughout especially more distally.
Posterior tibial artery: Patent with no significant stenosis. Dominant runoff vessel to the foot.
At this point I selectively cannulated the superficial femoral artery and then exchanged for an up and over 6 Angolan sheath over a Storq wire. The patient was given 6000 units of intravenous heparin. Next under roadmap assisted guidance using a
flopping of hydrophilic wire and a CXI catheter, I traversed the severe in-stent restenosis as well as the popliteal artery stenosis beyond there. This proved to be slightly difficult but was able to do so. I advanced my catheter. Confirmed I was
in the true lumen. I then exchanged back for a Storq wire. I then performed balloon angioplasty of the in-stent restenosis SFA with a 6 mm x 10 cm Bard Lutonix drug-coated balloon with prolonged inflation. I then used a 5 mm x 10 cm Bard Lutonix
drug-coated balloon with prolonged inflation for the popliteal stenosis. Completion angiogram demonstrated good result, but at the area of severe in-stent stenosis there was still some opacity indicating possible thrombus versus residual stenosis
although the flow lumen did improve. The popliteal artery stenosis significantly improved. Given this finding, I elected to reline the existing stent with an additional stent. I then used a 6 mm x 4 cm Zilver PTX in that vicinity of residual
stenosis/possible chronic thrombus. This was post angioplastied with a 6 mm balloon. Completion angiogram now demonstrated excellent result. Preserved flow through the runoff. At this point satisfied. I withdrew the sheath to the right external
iliac artery. Right femoral angiogram demonstrated good puncture in the right common femoral artery. Protamine was given reverse the heparin and the sheath was withdrawn (after wire was withdrawn) and manual pressure applied to the puncture site.
Hemostasis was fully achieved.
The patient tolerated procedure well. Upon completion she had a palpable 2+ left PT pulse.
[2025-03-21] MEDS: NSS 1000 IV (10:07)
[2025-03-21] MEDS: NSS 500 IV (10:08)
== END 2025-03-21 14:48 | disposition home or self-care (01) ==
LOC: CATH 06:09
PROVIDERS: ATTENDING PHYSICIAN Surgery Vascular Surgery; FAMILY PHYSICIAN Nurse Practitioner; OTHER PHYSICIAN Internal Medicine Cardiovascular Disease; PRIMARYCARE PHYSICIAN Family Medicine
DX: I70.212 Atherosclerosis of native arteries of extremities with intermittent claudication, left leg (principal); I11.0 Hypertensive heart disease with heart failure; I50.9 Heart failure, unspecified; E78.5 Hyperlipidemia, unspecified; Z79.82 Long term (current) use of aspirin; Z89.611 Acquired absence of right leg above knee; Z79.85 Long-term (current) use of injectable non-insulin antidiabetic drugs; Z79.4 Long term (current) use of insulin; Z79.899 Other long term (current) drug therapy; Z79.02 Long term (current) use of antithrombotics/antiplatelets; E11.40 Type 2 diabetes mellitus with diabetic neuropathy, unspecified; Z87.891 Personal history of nicotine dependence
CPT/HCPCS: 37226; 75625; 75710; 80048; 82962; 85027; 85610; 85730; 86850; 86900; 86901; C1725; C1769; C1874; C1887; C1894; C2623; Q9967

== ENCOUNTER 2025-03-27 08:38 | Outpatient (RCR) | payer OTHER, SELFPAY | END 2025-03-27 23:59 | disposition home or self-care (01) | LOC: RPT 08:38 | PROVIDERS: ATTENDING PHYSICIAN Physical Medicine & Rehabilitation | DX: Z47.81 Encounter for orthopedic aftercare following surgical amputation (principal); G62.9 Polyneuropathy, unspecified; M25.522 Pain in left elbow; R26.2 Difficulty in walking, not elsewhere classified; R25.2 Cramp and spasm; G54.6 Phantom limb syndrome with pain; Z74.09 Other reduced mobility; M62.81 Muscle weakness (generalized); Z73.6 Limitation of activities due to disability; Z98.890 Other specified postprocedural states; Z91.81 History of falling; Z89.611 Acquired absence of right leg above knee; Z47.89 Encounter for other orthopedic aftercare | CPT/HCPCS: 97116; 97763 ==

== ENCOUNTER → 2025-04-22 08:56 | Outpatient (REF) | payer OTHER, SELFPAY | LOC: RAD 08:56 | PROVIDERS: ATTENDING PHYSICIAN Surgery Vascular Surgery; FAMILY PHYSICIAN Nurse Practitioner | DX: I73.9 Peripheral vascular disease, unspecified (principal) | CPT/HCPCS: 93922; 93925 ==

== ENCOUNTER 2025-04-29 06:36 | Outpatient (RCR) | payer OTHER, SELFPAY | END 2025-04-29 23:59 | disposition home or self-care (01) | LOC: RPT 06:36 | PROVIDERS: ATTENDING PHYSICIAN Physical Medicine & Rehabilitation | DX: Z47.81 Encounter for orthopedic aftercare following surgical amputation (principal); G62.9 Polyneuropathy, unspecified; M25.522 Pain in left elbow; R26.2 Difficulty in walking, not elsewhere classified; R25.2 Cramp and spasm; Z74.09 Other reduced mobility; Z98.890 Other specified postprocedural states; Z89.611 Acquired absence of right leg above knee; G54.6 Phantom limb syndrome with pain; Z91.81 History of falling; M62.81 Muscle weakness (generalized); Z73.6 Limitation of activities due to disability; Z47.89 Encounter for other orthopedic aftercare | CPT/HCPCS: 97112; 97763 ==

== ENCOUNTER 2025-05-29 07:23 | Outpatient (RCR) | payer OTHER, SELFPAY | END 2025-05-29 23:59 | disposition home or self-care (01) | LOC: RPT 07:23 | PROVIDERS: ATTENDING PHYSICIAN Physical Medicine & Rehabilitation | DX: Z47.81 Encounter for orthopedic aftercare following surgical amputation (principal); G62.9 Polyneuropathy, unspecified; M25.522 Pain in left elbow; R26.2 Difficulty in walking, not elsewhere classified; R25.2 Cramp and spasm; Z74.09 Other reduced mobility; G54.6 Phantom limb syndrome with pain; M62.81 Muscle weakness (generalized); Z73.6 Limitation of activities due to disability; Z89.611 Acquired absence of right leg above knee; Z91.81 History of falling | CPT/HCPCS: 97112; 97116; 97530; 97763 ==

== ENCOUNTER → 2025-06-12 10:12 | Outpatient (REF) | payer OTHER, SELFPAY | LOC: HWRAD 10:12 | PROVIDERS: ATTENDING PHYSICIAN Internal Medicine; FAMILY PHYSICIAN Nurse Practitioner | DX: Z87.891 Personal history of nicotine dependence (principal) | CPT/HCPCS: 71271 ==

== ENCOUNTER 2025-06-24 06:58 | Outpatient (RCR) | payer OTHER, SELFPAY | END 2025-06-24 23:59 | disposition home or self-care (01) | LOC: RPT 06:58 | PROVIDERS: ATTENDING PHYSICIAN Physical Medicine & Rehabilitation | DX: Z47.81 Encounter for orthopedic aftercare following surgical amputation (principal); G62.9 Polyneuropathy, unspecified; M25.522 Pain in left elbow; R26.2 Difficulty in walking, not elsewhere classified; R25.2 Cramp and spasm; Z74.09 Other reduced mobility; G54.6 Phantom limb syndrome with pain; M62.81 Muscle weakness (generalized); Z73.6 Limitation of activities due to disability; Z89.611 Acquired absence of right leg above knee; Z91.81 History of falling | CPT/HCPCS: 97110; 97112; 97116; 97763 ==

== ENCOUNTER → 2025-06-25 10:39 | Outpatient (REF) | payer OTHER, SELFPAY | LOC: HWRAD 10:39 | PROVIDERS: ATTENDING PHYSICIAN Nurse Practitioner | DX: E04.1 Nontoxic single thyroid nodule (principal) | CPT/HCPCS: 76536 ==

== ENCOUNTER → 2025-07-17 13:21 | Outpatient (REF) | payer OTHER, SELFPAY ==
[2025-07-17 13:46] VITALS: BP 120/61; BP_SYST 90
== END ==
LOC: RADI 13:21
PROVIDERS: ATTENDING PHYSICIAN Nurse Practitioner
DX: E04.1 Nontoxic single thyroid nodule (principal)
CPT/HCPCS: 10005; 88173

== ENCOUNTER 2025-07-31 06:32 | Outpatient (RCR) | payer OTHER, SELFPAY | END 2025-07-31 23:59 | disposition home or self-care (01) | LOC: RPT 06:32 | PROVIDERS: ATTENDING PHYSICIAN Physical Medicine & Rehabilitation | DX: Z47.81 Encounter for orthopedic aftercare following surgical amputation (principal); G62.9 Polyneuropathy, unspecified; M25.522 Pain in left elbow; R25.2 Cramp and spasm; Z74.09 Other reduced mobility; G54.6 Phantom limb syndrome with pain; M62.81 Muscle weakness (generalized); Z73.6 Limitation of activities due to disability; I73.9 Peripheral vascular disease, unspecified; Z89.611 Acquired absence of right leg above knee; Z91.81 History of falling; R26.2 Difficulty in walking, not elsewhere classified | CPT/HCPCS: 93922; 93925; 97112; 97116; 97763 ==